=== PATIENT | female | born 1960 ===

== ENCOUNTER 2021-10-27 13:33 | Inpatient (IN) ==
[2021-10-27] MEDS ORDERED: NS 0.9% 1000 ml BAG 1,000 ML IV ONE (13:58)
[2021-10-27] MEDS ORDERED: Albuterol/Ipratropium NEB.SOL (2.5/0.5 MG) 3 ML NEB.SOLN INH ONE (14:00)
[2021-10-27] MEDS ORDERED: Naloxone 0.4 mg VIAL 0.4 mg/ml 1 ml VIAL IV PUSH ONE ×2 (14:03→15:54)
[2021-10-27 14:06] LABS: ABS Basophils 0.1 10^3/ul (0-0.2); ABS Eosinophils 0.4 10^3/ul (0-0.6); ABS Lymphocytes 0.9 10^3/ul (1.0-4.8); ABS Monocytes 0.5 10^3/ul (0-0.8); ABS Neutrophils 6.1 10^3/ul (1.5-7.7); Eosinophil % 5.6 %; Hematocrit 38 % (35-47); Hemoglobin 11.3 g/dL (12.0-16.0); Lymphocyte % 10.6 %; Mean Corpuscular HGB Conc 30 g/dL (31-36); Mean Corpuscular Hemoglobin 25 pg (27-31); Mean Corpuscular Volume 84 fL (80-97); Mean Platelet Volume 7.2 fL (7.4-10.4); Nucleated Red Blood Cells % 0.2; Platelet Count 419 10^3/uL (150-450); Red Blood Count 4.53 10^6 /uL (3.70-4.87); Red Cell Distribution Width 16 % (10-15)
[2021-10-27 14:26] LABS: PO2 Arterial 80 mmHg (80-100)
[2021-10-27 14:37] LABS: PCO2 Arterial 74 mmHg (35-45)
[2021-10-27 14:55] LABS: Albumin 4.1 g/dL (3.2-5.2); Albumin/Globulin Ratio 1.2 (1-3); Calcium 9.9 mg/dL (8.6-10.3); Globulin 3.4 g/dL (2-4); Magnesium 2.1 mg/dL (1.9-2.7); Potassium 4.9 mmol/L (3.5-5.0); Total Bilirubin 0.4 mg/dL (0.2-1.0); Total Protein 7.5 g/dL (6.4-8.9); eGFR CKD-EPI 48.3 (>60)
[2021-10-27 15:07] LABS: TSH Ultra Thyroid Stim Horm 1.57 mcIU/mL (0.34-5.60)
[2021-10-27] MEDS ORDERED: Azithromycin 500 mg/250 ml NS 500 MG/250 ML BAG IVPB ONE (15:17)
[2021-10-27] MEDS ORDERED: cefTRIAXone 1 gm/50 mL NS BAG 1 GM/50 ML BAG IV ONE (15:17)
[2021-10-27 15:42] LABS: High Sensitivity Troponin 1 Hr 5 pg/mL (<15)
[2021-10-27] MEDS ORDERED: NS 0.9% 1000 ml BAG 1,000 ML IV SCH (16:00)
[2021-10-27 16:01] LABS: Urine Appearance Clear; Urine Bilirubin Negative (Negative); Urine Blood 2+ (Negative); Urine Color Yellow; Urine Glucose Negative (Negative); Urine Ketones Negative (Negative); Urine Nitrite Negative (Negative); Urine Protein 2+(100 mg/dL) (Negative); Urine Urobilinogen Negative (Negative)
[2021-10-27 16:05] LABS: Urine Bacteria Absent (Absent); Urine Red Blood Cell 1+(3-5/hpf) (Absent); Urine Squamous Epithelial Cell Present (Absent); Urine White Blood Cell Trace(0-5/hpf) (Absent)
[2021-10-27 16:44] LABS: PCO2 Arterial 69 mmHg (35-45); PO2 Arterial 67 mmHg (80-100)
[2021-10-27] MEDS ORDERED: Naloxone 0.4 mg VIAL 0.4 mg/ml 1 ml VIAL IV PUSH PRN (19:19)
[2021-10-27] MEDS ORDERED: Albuterol HFA INHALER 8 gm MDI INH PRN (19:21)
[2021-10-27] MEDS ORDERED: Dextrose 50% Syringe 50 ml 25 GM/50 ML SYRINGE IV PUSH PRN (19:31)
[2021-10-27] MEDS ORDERED: Furosemide 40 mg/4 ml IV VIAL IV ONE (19:42)
[2021-10-28 00:39] LABS: Potassium 4.1 mmol/L (3.5-5.0); eGFR CKD-EPI 59.8 (>60)
[2021-10-28 05:36] LABS: ABS Basophils 0.1 10^3/ul (0-0.2); ABS Eosinophils 0.4 10^3/ul (0-0.6); ABS Lymphocytes 0.8 10^3/ul (1.0-4.8); ABS Monocytes 0.6 10^3/ul (0-0.8); ABS Neutrophils 4.7 10^3/ul (1.5-7.7); Eosinophil % 5.6 %; Hematocrit 31 % (35-47); Hemoglobin 9.4 g/dL (12.0-16.0); Lymphocyte % 12.7 %; Mean Corpuscular HGB Conc 30 g/dL (31-36); Mean Corpuscular Hemoglobin 25 pg (27-31); Mean Corpuscular Volume 83 fL (80-97); Mean Platelet Volume 7.2 fL (7.4-10.4); Platelet Count 343 10^3/uL (150-450); Red Blood Count 3.76 10^6 /uL (3.70-4.87); Red Cell Distribution Width 16 % (10-15); White Blood Count 6.5 10^3/uL (3.5-10.8)
[2021-10-28 06:36] LABS: Albumin 3.4 g/dL (3.2-5.2); Albumin/Globulin Ratio 1.3 (1-3); Globulin 2.7 g/dL (2-4); Magnesium 1.8 mg/dL (1.9-2.7); Phosphorus 3.3 mg/dL (2.5-5.0); Potassium 4.3 mmol/L (3.5-5.0); Total Bilirubin 0.4 mg/dL (0.2-1.0); Total Protein 6.1 g/dL (6.4-8.9); eGFR CKD-EPI 64.1 (>60)
[2021-10-28] MEDS ORDERED: Magnesium Sulfate 2 gm BAG 2 GM/50 ML BAG IVPB ONE (08:05)
[2021-10-28] MEDS ORDERED: Furosemide 20 mg/2 ml IV VIAL IV SLOW PU ONE (08:38)
[2021-10-28] MEDS ORDERED: methylPREDNISolone 125 mg 2 ML VIAL IV ONE (08:51)
[2021-10-28] MEDS: Albuterol 2.5mg/3 ml (0.083%) NEB.SOLN INH SCH ×5 (08:53→23:33)
[2021-10-28 08:58] LABS: Venous Bicarbonate HCO3 33.6 mmol/L (24-28)
[2021-10-28] MEDS: FLUTICASONE INH SCH (10:36)
[2021-10-28] MEDS: UMECLIDINIUM INH SCH (10:36)
[2021-10-28] MEDS: VILANTEROL INH SCH (10:36)
[2021-10-28 11:21] LABS: Calcium 9.4 mg/dL (8.6-10.3); Potassium 4.6 mmol/L (3.5-5.0); eGFR CKD-EPI 68.2 (>60)
[2021-10-28 11:30] LABS: ABS Basophils 0.1 10^3/ul (0-0.2); ABS Eosinophils 0.3 10^3/ul (0-0.6); ABS Lymphocytes 0.5 10^3/ul (1.0-4.8); ABS Monocytes 0.2 10^3/ul (0-0.8); Eosinophil % 3.6 %; Hematocrit 33 % (35-47); Lymphocyte % 6.7 %; Mean Corpuscular HGB Conc 30 g/dL (31-36); Mean Corpuscular Hemoglobin 25 pg (27-31); Mean Corpuscular Volume 83 fL (80-97); Mean Platelet Volume 7.4 fL (7.4-10.4); Platelet Count 344 10^3/uL (150-450); Red Blood Count 3.97 10^6 /uL (3.70-4.87); Red Cell Distribution Width 16 % (10-15); White Blood Count 8.1 10^3/uL (3.5-10.8)
[2021-10-28] MEDS ORDERED: Dextrose 50% Syringe 50 ml 25 GM/50 ML SYRINGE IV PUSH PRN (12:40)
[2021-10-28] MEDS: methylPREDNISolone SOD 40 mg/ml 1 ml VIAL IV SCH (17:25)
[2021-10-28 17:44] LABS: Glucose Confirmatory 405 mg/dL (70-100)
[2021-10-28] MEDS ORDERED: Insulin GLARGINE 100 un/ml 10 ml VIAL SUBCUT SCH (21:00)
[2021-10-28 21:53] LABS: Glucose Confirmatory 462 mg/dL (70-100)
[2021-10-29] MEDS: methylPREDNISolone SOD 40 mg/ml 1 ml VIAL IV SCH (01:30)
[2021-10-29 02:30] LABS: Glucose Confirmatory 414 mg/dL (70-100)
[2021-10-29] MEDS: Albuterol 2.5mg/3 ml (0.083%) NEB.SOLN INH SCH ×2 (04:23→07:39)
[2021-10-29 05:49] LABS: ABS Lymphocytes 0.4 10^3/ul (1.0-4.8); ABS Monocytes 0.2 10^3/ul (0-0.8); ABS Neutrophils 4.3 10^3/ul (1.5-7.7); Hematocrit 33 % (35-47); Hemoglobin 10.3 g/dL (12.0-16.0); Lymphocyte % 7.3 %; Mean Corpuscular HGB Conc 32 g/dL (31-36); Mean Corpuscular Hemoglobin 25 pg (27-31); Mean Corpuscular Volume 80 fL (80-97); Mean Platelet Volume 7.1 fL (7.4-10.4); Nucleated Red Blood Cells % 0.1; Platelet Count 349 10^3/uL (150-450); Red Blood Count 4.07 10^6 /uL (3.70-4.87); Red Cell Distribution Width 16 % (10-15); White Blood Count 4.9 10^3/uL (3.5-10.8)
[2021-10-29 06:19] LABS: Calcium 9.5 mg/dL (8.6-10.3); eGFR CKD-EPI 65.7 (>60)
[2021-10-29] MEDS: UMECLIDINIUM INH SCH (07:39)
[2021-10-29] MEDS: VILANTEROL INH SCH (07:39)
[2021-10-29] MEDS: FLUTICASONE INH SCH (07:39)
[2021-10-29] MEDS ORDERED: Furosemide 40 mg/4 ml IV VIAL IV ONE ×2 (08:15→15:00)
[2021-10-29] MEDS ORDERED: methylPREDNISolone SOD 40 mg/ml 1 ml VIAL IV SCH (09:00)
[2021-10-29] MEDS ORDERED: Insulin GLARGINE 100 un/ml 10 ml VIAL SUBCUT ONE (09:43)
[2021-10-29] MEDS ORDERED: Albuterol 2.5mg/3 ml (0.083%) NEB.SOLN INH PRN (09:44)
[2021-10-29 12:54] LABS: Glucose Confirmatory 434 mg/dL (70-100)
[2021-10-29 15:17] LABS: Uric Acid 7.8 mg/dL (2.3-6.6)
[2021-10-29 16:45] LABS: Blood Urea Nitrogen 30 mg/dL (6-24); CO2 Carbon Dioxide 35 mmol/L (22-32); Calcium 8.8 mg/dL (8.6-10.3); Chloride 94 mmol/L (101-111); Glucose 469 mg/dL (70-100); Sodium 135 mmol/L (135-145); eGFR CKD-EPI 75.7 (>60)
[2021-10-29 16:48] LABS: Anion Gap 6 mmol/L (2-11)
[2021-10-29] MEDS: Heparin 5000 UNITS/ML 1 mL VIAL SUBCUT SCH (20:24)
[2021-10-29] MEDS: Insulin GLARGINE 100 un/ml 10 ml VIAL SUBCUT SCH (20:24)
[2021-10-30] MEDS: Heparin 5000 UNITS/ML 1 mL VIAL SUBCUT SCH ×3 (05:30→22:22)
[2021-10-30 05:44] LABS: ABS Lymphocytes 0.7 10^3/ul (1.0-4.8); ABS Monocytes 0.6 10^3/ul (0-0.8); ABS Neutrophils 6.6 10^3/ul (1.5-7.7); Eosinophil % 0.1 %; Hematocrit 33 % (35-47); Hemoglobin 10.4 g/dL (12.0-16.0); Lymphocyte % 8.7 %; Mean Corpuscular HGB Conc 31 g/dL (31-36); Mean Corpuscular Hemoglobin 25 pg (27-31); Mean Corpuscular Volume 81 fL (80-97); Mean Platelet Volume 7.3 fL (7.4-10.4); Platelet Count 373 10^3/uL (150-450); Red Blood Count 4.12 10^6 /uL (3.70-4.87); Red Cell Distribution Width 16 % (10-15)
[2021-10-30 06:25] LABS: Calcium 9.3 mg/dL (8.6-10.3); Magnesium 1.9 mg/dL (1.9-2.7); Phosphorus 2.5 mg/dL (2.5-5.0); Potassium 4.5 mmol/L (3.5-5.0); eGFR CKD-EPI 63.4 (>60)
[2021-10-30] MEDS: VILANTEROL INH SCH ×2 (07:30→08:30)
[2021-10-30] MEDS: UMECLIDINIUM INH SCH ×2 (07:30→08:30)
[2021-10-30] MEDS: FLUTICASONE INH SCH ×2 (07:30→08:30)
[2021-10-30 18:04] LABS: Glucose Confirmatory 486 mg/dL (70-100)
[2021-10-30 23:17] LABS: Glucose Confirmatory 442 mg/dL (70-100)
[2021-10-30] MEDS: Insulin GLARGINE 100 un/ml 10 ml VIAL SUBCUT SCH (23:18)
[2021-10-31 05:15] LABS: ABS Lymphocytes 1.2 10^3/ul (1.0-4.8); ABS Monocytes 0.6 10^3/ul (0-0.8); ABS Neutrophils 4.2 10^3/ul (1.5-7.7); Eosinophil % 0.7 %; Hematocrit 32 % (35-47); Hemoglobin 10.3 g/dL (12.0-16.0); Lymphocyte % 19.3 %; Mean Corpuscular HGB Conc 32 g/dL (31-36); Mean Corpuscular Hemoglobin 26 pg (27-31); Mean Corpuscular Volume 80 fL (80-97); Mean Platelet Volume 7.5 fL (7.4-10.4); Platelet Count 379 10^3/uL (150-450); Red Blood Count 4.01 10^6 /uL (3.70-4.87); Red Cell Distribution Width 16 % (10-15)
[2021-10-31 05:41] LABS: Calcium 9.1 mg/dL (8.6-10.3); Potassium 4.2 mmol/L (3.5-5.0); eGFR CKD-EPI 69.9 (>60)
[2021-10-31] MEDS: Heparin 5000 UNITS/ML 1 mL VIAL SUBCUT SCH ×3 (05:54→20:28)
[2021-10-31] MEDS: UMECLIDINIUM INH SCH (07:21)
[2021-10-31] MEDS: FLUTICASONE INH SCH (07:21)
[2021-10-31] MEDS: VILANTEROL INH SCH (07:21)
[2021-10-31] MEDS ORDERED: Furosemide 20 mg/2 ml IV VIAL IV ONE (10:47)
[2021-10-31] MEDS: Magnesium Hydroxide LIQ 30 ML UDC PO PRN (18:04)
[2021-10-31] MEDS: Polyethylene Glycol 3350 17 GM PACKET PO SCH (20:28)
[2021-10-31] MEDS: Insulin GLARGINE 100 un/ml 10 ml VIAL SUBCUT SCH (20:48)
[2021-11-01] MEDS: Heparin 5000 UNITS/ML 1 mL VIAL SUBCUT SCH ×3 (05:41→20:48)
[2021-11-01] MEDS: UMECLIDINIUM INH SCH (07:50)
[2021-11-01] MEDS: FLUTICASONE INH SCH (07:50)
[2021-11-01] MEDS: VILANTEROL INH SCH (07:50)
[2021-11-01] MEDS: Polyethylene Glycol 3350 17 GM PACKET PO SCH ×2 (09:17→20:50)
[2021-11-01] MEDS: Insulin GLARGINE 100 un/ml 10 ml VIAL SUBCUT SCH (20:49)
[2021-11-02] MEDS: Heparin 5000 UNITS/ML 1 mL VIAL SUBCUT SCH ×3 (05:40→20:45)
[2021-11-02 06:44] LABS: ABS Eosinophils 0.2 10^3/ul (0-0.6); ABS Lymphocytes 1.4 10^3/ul (1.0-4.8); ABS Monocytes 0.6 10^3/ul (0-0.8); ABS Neutrophils 5.7 10^3/ul (1.5-7.7); Eosinophil % 2.4 %; Hematocrit 34 % (35-47); Hemoglobin 10.9 g/dL (12.0-16.0); Lymphocyte % 17.2 %; Mean Corpuscular HGB Conc 32 g/dL (31-36); Mean Corpuscular Hemoglobin 26 pg (27-31); Mean Corpuscular Volume 81 fL (80-97); Mean Platelet Volume 7.6 fL (7.4-10.4); Platelet Count 348 10^3/uL (150-450); Red Blood Count 4.26 10^6 /uL (3.70-4.87); Red Cell Distribution Width 16 % (10-15); White Blood Count 7.9 10^3/uL (3.5-10.8)
[2021-11-02] MEDS: VILANTEROL INH SCH (07:02)
[2021-11-02] MEDS: UMECLIDINIUM INH SCH (07:02)
[2021-11-02] MEDS: FLUTICASONE INH SCH (07:02)
[2021-11-02 07:21] LABS: Calcium 9.2 mg/dL (8.6-10.3); Potassium 4.6 mmol/L (3.5-5.0); eGFR CKD-EPI 75.7 (>60)
[2021-11-02] MEDS: Polyethylene Glycol 3350 17 GM PACKET PO SCH ×2 (09:12→20:45)
[2021-11-02] MEDS: Magnesium Hydroxide LIQ 30 ML UDC PO PRN ×2 (09:13→18:30)
[2021-11-02] MEDS ORDERED: Lidocaine PATCH 5% PATCH TRANSDERM PRN (16:04)
[2021-11-02] MEDS: Insulin GLARGINE 100 un/ml 10 ml VIAL SUBCUT SCH (20:42)
[2021-11-03] MEDS: Heparin 5000 UNITS/ML 1 mL VIAL SUBCUT SCH ×3 (06:21→20:10)
[2021-11-03] MEDS: Polyethylene Glycol 3350 17 GM PACKET PO SCH ×3 (08:10→20:10)
[2021-11-03] MEDS: VILANTEROL INH SCH (08:38)
[2021-11-03] MEDS: FLUTICASONE INH SCH (08:38)
[2021-11-03] MEDS: UMECLIDINIUM INH SCH (08:38)
[2021-11-03] MEDS: Magnesium Hydroxide LIQ 30 ML UDC PO PRN ×2 (15:01→19:54)
[2021-11-03] MEDS: Insulin GLARGINE 100 un/ml 10 ml VIAL SUBCUT SCH (20:08)
[2021-11-03 23:48] LABS: Magnesium 2.4 mg/dL (1.9-2.7); Potassium 4.9 mmol/L (3.5-5.0); eGFR CKD-EPI 47.4 (>60)
[2021-11-04 05:53] LABS: ABS Basophils 0.1 10^3/ul (0-0.2); ABS Eosinophils 0.4 10^3/ul (0-0.6); ABS Lymphocytes 1.3 10^3/ul (1.0-4.8); ABS Monocytes 0.5 10^3/ul (0-0.8); ABS Neutrophils 5.1 10^3/ul (1.5-7.7); Hematocrit 34 % (35-47); Hemoglobin 10.7 g/dL (12.0-16.0); Lymphocyte % 17.7 %; Mean Corpuscular HGB Conc 31 g/dL (31-36); Mean Corpuscular Hemoglobin 25 pg (27-31); Mean Corpuscular Volume 81 fL (80-97); Nucleated Red Blood Cells % 0.1; Platelet Count 304 10^3/uL (150-450); Red Blood Count 4.23 10^6 /uL (3.70-4.87); Red Cell Distribution Width 16 % (10-15); White Blood Count 7.4 10^3/uL (3.5-10.8)
[2021-11-04 06:17] LABS: Calcium 9.2 mg/dL (8.6-10.3); Potassium 4.9 mmol/L (3.5-5.0); eGFR CKD-EPI 56.6 (>60)
[2021-11-04] MEDS: Heparin 5000 UNITS/ML 1 mL VIAL SUBCUT SCH ×3 (06:18→21:35)
[2021-11-04] MEDS: VILANTEROL INH SCH (08:07)
[2021-11-04] MEDS: FLUTICASONE INH SCH (08:07)
[2021-11-04] MEDS: UMECLIDINIUM INH SCH (08:07)
[2021-11-04] MEDS: Polyethylene Glycol 3350 17 GM PACKET PO SCH ×2 (09:26→21:36)
[2021-11-04] MEDS: Insulin GLARGINE 100 un/ml 10 ml VIAL SUBCUT SCH (21:34)
[2021-11-05] MEDS: Heparin 5000 UNITS/ML 1 mL VIAL SUBCUT SCH ×3 (05:29→22:01)
[2021-11-05] MEDS: UMECLIDINIUM INH SCH (07:57)
[2021-11-05] MEDS: VILANTEROL INH SCH (07:57)
[2021-11-05] MEDS: FLUTICASONE INH SCH (07:57)
[2021-11-05] MEDS: Polyethylene Glycol 3350 17 GM PACKET PO SCH ×2 (09:26→21:45)
[2021-11-05] MEDS: Insulin GLARGINE 100 un/ml 10 ml VIAL SUBCUT SCH (22:01)
[2021-11-06] MEDS: Heparin 5000 UNITS/ML 1 mL VIAL SUBCUT SCH ×3 (06:01→21:29)
[2021-11-06 06:02] LABS: ABS Basophils 0.1 10^3/ul (0-0.2); ABS Eosinophils 0.4 10^3/ul (0-0.6); ABS Monocytes 0.6 10^3/ul (0-0.8); ABS Neutrophils 4.9 10^3/ul (1.5-7.7); Eosinophil % 5.5 %; Hematocrit 33 % (35-47); Hemoglobin 10.4 g/dL (12.0-16.0); Lymphocyte % 14.7 %; Mean Corpuscular HGB Conc 32 g/dL (31-36); Mean Corpuscular Hemoglobin 26 pg (27-31); Mean Corpuscular Volume 81 fL (80-97); Mean Platelet Volume 8.7 fL (7.4-10.4); Nucleated Red Blood Cells % 0.1; Platelet Count 282 10^3/uL (150-450); Red Blood Count 4.05 10^6 /uL (3.70-4.87); Red Cell Distribution Width 16 % (10-15)
[2021-11-06 06:25] LABS: Calcium 9.2 mg/dL (8.6-10.3); Potassium 4.8 mmol/L (3.5-5.0); eGFR CKD-EPI 54.9 (>60)
[2021-11-06] MEDS: VILANTEROL INH SCH (08:22)
[2021-11-06] MEDS: FLUTICASONE INH SCH (08:22)
[2021-11-06] MEDS: UMECLIDINIUM INH SCH (08:22)
[2021-11-06] MEDS: Polyethylene Glycol 3350 17 GM PACKET PO SCH ×2 (08:39→21:29)
[2021-11-06] MEDS: Insulin GLARGINE 100 un/ml 10 ml VIAL SUBCUT SCH (20:33)
[2021-11-07] MEDS: Heparin 5000 UNITS/ML 1 mL VIAL SUBCUT SCH ×4 (05:10→21:16)
[2021-11-07 07:30] LABS: Calcium 9.2 mg/dL (8.6-10.3); eGFR CKD-EPI 62.6 (>60)
[2021-11-07] MEDS: FLUTICASONE INH SCH (07:48)
[2021-11-07] MEDS: VILANTEROL INH SCH (07:48)
[2021-11-07] MEDS: UMECLIDINIUM INH SCH (07:48)
[2021-11-07] MEDS: Polyethylene Glycol 3350 17 GM PACKET PO SCH ×2 (08:40→21:43)
[2021-11-07] MEDS ORDERED: Dextrose 50% Syringe 50 ml 25 GM/50 ML SYRINGE IV PUSH PRN (16:52)
[2021-11-07] MEDS: Insulin GLARGINE 100 un/ml 10 ml VIAL SUBCUT SCH (21:48)
[2021-11-08 05:29] LABS: PCO2 Arterial 50 mmHg (35-45); PO2 Arterial 85 mmHg (80-100)
[2021-11-08] MEDS: Heparin 5000 UNITS/ML 1 mL VIAL SUBCUT SCH ×3 (06:04→22:10)
[2021-11-08] MEDS: FLUTICASONE INH SCH (08:06)
[2021-11-08] MEDS: VILANTEROL INH SCH (08:06)
[2021-11-08] MEDS: UMECLIDINIUM INH SCH (08:06)
[2021-11-08] MEDS: Polyethylene Glycol 3350 17 GM PACKET PO SCH ×2 (08:36→21:27)
[2021-11-08 21:43] LABS: ABS Basophils 0.1 10^3/ul (0-0.2); ABS Eosinophils 0.2 10^3/ul (0-0.6); ABS Lymphocytes 1.1 10^3/ul (1.0-4.8); ABS Monocytes 0.5 10^3/ul (0-0.8); ABS Neutrophils 4.6 10^3/ul (1.5-7.7); Eosinophil % 3.8 %; Hematocrit 30 % (35-47); Hemoglobin 9.5 g/dL (12.0-16.0); Lymphocyte % 16.8 %; Mean Corpuscular HGB Conc 31 g/dL (31-36); Mean Corpuscular Hemoglobin 26 pg (27-31); Mean Corpuscular Volume 81 fL (80-97); Platelet Count 251 10^3/uL (150-450); Red Blood Count 3.74 10^6 /uL (3.70-4.87); Red Cell Distribution Width 16 % (10-15); White Blood Count 6.5 10^3/uL (3.5-10.8)
[2021-11-08] MEDS: Insulin GLARGINE 100 un/ml 10 ml VIAL SUBCUT SCH (22:10)
[2021-11-08 22:20] LABS: Calcium 8.8 mg/dL (8.6-10.3); Potassium 5.1 mmol/L (3.5-5.0)
[2021-11-08 22:25] LABS: eGFR CKD-EPI 72.7 (>60)
[2021-11-09] MEDS: Heparin 5000 UNITS/ML 1 mL VIAL SUBCUT SCH ×3 (05:33→22:28)
[2021-11-09] MEDS: VILANTEROL INH SCH (07:11)
[2021-11-09] MEDS: FLUTICASONE INH SCH (07:11)
[2021-11-09] MEDS: UMECLIDINIUM INH SCH (07:11)
[2021-11-09] MEDS: Polyethylene Glycol 3350 17 GM PACKET PO SCH ×2 (08:29→22:29)
[2021-11-09] MEDS: Insulin GLARGINE 100 un/ml 10 ml VIAL SUBCUT SCH (22:28)
[2021-11-10] MEDS: Heparin 5000 UNITS/ML 1 mL VIAL SUBCUT SCH ×3 (05:34→21:55)
[2021-11-10 08:34] LABS: ABS Basophils 0.1 10^3/ul (0-0.2); ABS Eosinophils 0.2 10^3/ul (0-0.6); ABS Lymphocytes 0.6 10^3/ul (1.0-4.8); ABS Monocytes 0.5 10^3/ul (0-0.8); ABS Neutrophils 4.8 10^3/ul (1.5-7.7); Eosinophil % 3.3 %; Hematocrit 31 % (35-47); Hemoglobin 9.7 g/dL (12.0-16.0); Lymphocyte % 10.4 %; Mean Corpuscular HGB Conc 31 g/dL (31-36); Mean Corpuscular Hemoglobin 25 pg (27-31); Mean Corpuscular Volume 81 fL (80-97); Mean Platelet Volume 7.7 fL (7.4-10.4); Nucleated Red Blood Cells % 0.1; Platelet Count 255 10^3/uL (150-450); Red Blood Count 3.85 10^6 /uL (3.70-4.87); Red Cell Distribution Width 16 % (10-15); White Blood Count 6.2 10^3/uL (3.5-10.8)
[2021-11-10] MEDS: Polyethylene Glycol 3350 17 GM PACKET PO SCH ×3 (08:39→13:14)
[2021-11-10] MEDS: FLUTICASONE INH SCH (08:43)
[2021-11-10] MEDS: UMECLIDINIUM INH SCH (08:43)
[2021-11-10] MEDS: VILANTEROL INH SCH (08:43)
[2021-11-10 09:24] LABS: Calcium 9.5 mg/dL (8.6-10.3); Magnesium 1.8 mg/dL (1.9-2.7); eGFR CKD-EPI 63.4 (>60)
[2021-11-10 09:25] LABS: Potassium 5.4 mmol/L (3.5-5.0)
[2021-11-10 12:07] LABS: Glucose Confirmatory 407 mg/dL (70-100)
[2021-11-10] MEDS: Insulin GLARGINE 100 un/ml 10 ml VIAL SUBCUT SCH ×2 (12:47→21:55)
[2021-11-10] MEDS ORDERED: Dextrose 50% Syringe 50 ml 25 GM/50 ML SYRINGE IV PUSH PRN (13:03)
[2021-11-10] MEDS ORDERED: Patiromer POWDER 8.4 GM PAK PO ONE (13:15)
[2021-11-10 20:46] LABS: Glucose Confirmatory 416 mg/dL (70-100)
[2021-11-11] MEDS: Heparin 5000 UNITS/ML 1 mL VIAL SUBCUT SCH ×3 (05:17→21:07)
[2021-11-11 06:22] LABS: ABS Basophils 0.1 10^3/ul (0-0.2); ABS Eosinophils 0.2 10^3/ul (0-0.6); ABS Lymphocytes 0.8 10^3/ul (1.0-4.8); ABS Monocytes 0.4 10^3/ul (0-0.8); ABS Neutrophils 4.1 10^3/ul (1.5-7.7); Eosinophil % 3.9 %; Hematocrit 30 % (35-47); Hemoglobin 9.6 g/dL (12.0-16.0); Lymphocyte % 14.5 %; Mean Corpuscular HGB Conc 32 g/dL (31-36); Mean Corpuscular Hemoglobin 26 pg (27-31); Mean Corpuscular Volume 81 fL (80-97); Mean Platelet Volume 7.6 fL (7.4-10.4); Platelet Count 253 10^3/uL (150-450); Red Blood Count 3.75 10^6 /uL (3.70-4.87); Red Cell Distribution Width 16 % (10-15); White Blood Count 5.6 10^3/uL (3.5-10.8)
[2021-11-11] MEDS: Polyethylene Glycol 3350 17 GM PACKET PO SCH (07:37)
[2021-11-11 07:45] LABS: Calcium 9.7 mg/dL (8.6-10.3); Magnesium 1.7 mg/dL (1.9-2.7)
[2021-11-11 07:48] LABS: Potassium 5.4 mmol/L (3.5-5.0)
[2021-11-11 07:50] LABS: eGFR CKD-EPI 61.9 (>60)
[2021-11-11] MEDS: Insulin GLARGINE 100 un/ml 10 ml VIAL SUBCUT SCH ×2 (08:21→20:08)
[2021-11-11] MEDS: UMECLIDINIUM INH SCH (08:30)
[2021-11-11] MEDS: FLUTICASONE INH SCH (08:30)
[2021-11-11] MEDS: VILANTEROL INH SCH (08:30)
[2021-11-11] MEDS ORDERED: Sodium Polystyrene ORAL.SUSP 15 GM/60 ML BTL PO ONE (08:49)
[2021-11-11 13:59] LABS: Calcium 9.8 mg/dL (8.6-10.3); eGFR CKD-EPI 65.7 (>60)
[2021-11-11 14:04] LABS: Potassium 5.3 mmol/L (3.5-5.0)
[2021-11-11] MEDS ORDERED: SODIUM ZIRCONIUM CYCLOSILICATE 5 GM PACKET PO ONE (18:00)
[2021-11-12] MEDS: Heparin 5000 UNITS/ML 1 mL VIAL SUBCUT SCH ×3 (05:23→20:10)
[2021-11-12 07:09] LABS: Calcium 9.8 mg/dL (8.6-10.3); Magnesium 1.6 mg/dL (1.9-2.7); eGFR CKD-EPI 71.7 (>60)
[2021-11-12 07:10] LABS: Potassium 5.1 mmol/L (3.5-5.0)
[2021-11-12] MEDS: VILANTEROL INH SCH (07:41)
[2021-11-12] MEDS: UMECLIDINIUM INH SCH (07:41)
[2021-11-12] MEDS: FLUTICASONE INH SCH (07:41)
[2021-11-12] MEDS ORDERED: Magnesium Sulf 4 GM/100 ML IV 4,000 MG/100 ML BAG IVPB ONE (08:00)
[2021-11-12] MEDS: Polyethylene Glycol 3350 17 GM PACKET PO SCH (08:49)
[2021-11-12] MEDS ORDERED: SODIUM ZIRCONIUM CYCLOSILICATE 5 GM PACKET PO ONE (09:00)
[2021-11-12] MEDS ORDERED: Insulin GLARGINE 100 un/ml 10 ml VIAL SUBCUT SCH (09:00)
[2021-11-12] MEDS: Insulin GLARGINE 100 un/ml 10 ml VIAL SUBCUT SCH (20:09)
[2021-11-13] MEDS: Heparin 5000 UNITS/ML 1 mL VIAL SUBCUT SCH ×3 (05:48→21:03)
[2021-11-13 08:06] LABS: ABS Basophils 0.1 10^3/ul (0-0.2); ABS Eosinophils 0.3 10^3/ul (0-0.6); ABS Lymphocytes 0.7 10^3/ul (1.0-4.8); ABS Monocytes 0.4 10^3/ul (0-0.8); ABS Neutrophils 4.8 10^3/ul (1.5-7.7); Eosinophil % 4.4 %; Hematocrit 31 % (35-47); Hemoglobin 9.8 g/dL (12.0-16.0); Lymphocyte % 11.7 %; Mean Corpuscular HGB Conc 32 g/dL (31-36); Mean Corpuscular Hemoglobin 26 pg (27-31); Mean Corpuscular Volume 81 fL (80-97); Mean Platelet Volume 7.3 fL (7.4-10.4); Platelet Count 243 10^3/uL (150-450); Red Blood Count 3.83 10^6 /uL (3.70-4.87); Red Cell Distribution Width 16 % (10-15); White Blood Count 6.3 10^3/uL (3.5-10.8)
[2021-11-13] MEDS: Polyethylene Glycol 3350 17 GM PACKET PO SCH (08:07)
[2021-11-13] MEDS: VILANTEROL INH SCH (08:27)
[2021-11-13] MEDS: UMECLIDINIUM INH SCH (08:27)
[2021-11-13] MEDS: FLUTICASONE INH SCH (08:27)
[2021-11-13 08:41] LABS: Calcium 9.8 mg/dL (8.6-10.3); Magnesium 1.6 mg/dL (1.9-2.7); eGFR CKD-EPI 71.7 (>60)
[2021-11-13] MEDS: Insulin GLARGINE 100 un/ml 10 ml VIAL SUBCUT SCH ×2 (08:46→21:02)
[2021-11-14] MEDS: Heparin 5000 UNITS/ML 1 mL VIAL SUBCUT SCH (05:26)
[2021-11-14 05:48] LABS: ABS Basophils 0.1 10^3/ul (0-0.2); ABS Eosinophils 0.3 10^3/ul (0-0.6); ABS Monocytes 0.4 10^3/ul (0-0.8); Eosinophil % 4.3 %; Hematocrit 31 % (35-47); Hemoglobin 9.7 g/dL (12.0-16.0); Lymphocyte % 14.3 %; Mean Corpuscular HGB Conc 31 g/dL (31-36); Mean Corpuscular Hemoglobin 25 pg (27-31); Mean Corpuscular Volume 80 fL (80-97); Mean Platelet Volume 7.4 fL (7.4-10.4); Nucleated Red Blood Cells % 0.2; Platelet Count 227 10^3/uL (150-450); Red Blood Count 3.91 10^6 /uL (3.70-4.87); Red Cell Distribution Width 16 % (10-15); White Blood Count 6.7 10^3/uL (3.5-10.8)
[2021-11-14 06:06] LABS: Calcium 9.5 mg/dL (8.6-10.3); Magnesium 1.6 mg/dL (1.9-2.7); Potassium 4.9 mmol/L (3.5-5.0); eGFR CKD-EPI 82.3 (>60)
[2021-11-14] MEDS: FLUTICASONE INH SCH (08:48)
[2021-11-14] MEDS: VILANTEROL INH SCH (08:48)
[2021-11-14] MEDS: UMECLIDINIUM INH SCH (08:48)
[2021-11-14] MEDS: Insulin GLARGINE 100 un/ml 10 ml VIAL SUBCUT SCH (09:48)
[2021-11-14] MEDS: Polyethylene Glycol 3350 17 GM PACKET PO SCH (09:54)
[2021-11-14 12:04] VITALS: BP 138/61
== END 2021-11-14 14:20 | DRG 189 ==
LOC: ED 13:33 → SUATTDRO 16:32 → ICU 16:32 → MED 10-30 15:03
PROVIDERS: ADMIT Internal Medicine; ATTEND Hospitalist